=== PATIENT | female | born 1950 | race Caucasian/White ===

== ENCOUNTER 2017-12-07 10:14 | Emergency (ER) | payer OTHER ==
[~2017-12-07] VITALS: Ht 160 cm; Wt 58.0 kg
[2017-12-07 10:45] LABS: HEMATOCRIT 40.5 % (36.0-46.0); HEMOGLOBIN 13.9 G/DL (11.9-15.5); MCH 32.2 PG (29.0-34.0); MCHC 34.3 G/DL (30.0-36.0); MCV 93.8 FL (83-99); PLATELET COUNT 263 K/uL (156-360); RBC DIS.WIDTH-CV 12.3 % (11.8-14.6); RBC DIS.WIDTH-SD 42.4 % (39-53); RED BLOOD COUNT 4.32 M/uL (3.80-5.20); WHITE BLOOD COUNT 12.1 K/uL (4.1-10.2)
[2017-12-07 10:53] LABS: ALBUMIN 4.4 g/dL (3.2-4.8); CHLORIDE 102 mEq/L (99-109); SODIUM 139 mEq/L (136-147)
[2017-12-07 10:55] LABS: GLUCOSE 113 mg/dL (70-99)
[2017-12-07 10:56] LABS: TOTAL PROTEIN 8.1 g/dL (6.4-8.3)
[2017-12-07 10:57] LABS: TOTAL BILIRUBIN 0.3 mg/dL (0.0-1.0)
[2017-12-07 10:59] LABS: ALKALINE PHOSPHATASE 123 IU/L (3-129); CREATININE 0.9 mg/dL (0.6-1.3); GFR ESTIMATE (CALCULATED) > 59 mL/min/
[2017-12-07 11:00] LABS: UREA NITROGEN (BUN) 16 mg/dL (9-23)
[2017-12-07 11:01] LABS: AST (GOT) 27 IU/L (2-34)
[2017-12-07 11:02] LABS: ALT (GPT) 31 IU/L (3-49)
[2017-12-07 13:12] LABS: LIPASE 26 U/L (1.0-51.0)
[2017-12-07 13:14] LABS: APPEARANCE CLEAR ((CLEAR)); BILIRUBIN NEGATIVE; BLOOD SMALL; COLOR STRAW ((YELLOW)); GLUCOSE (STRIP) NEGATIVE; KETONES NEGATIVE; LEUKOCYTES NEGATIVE; NITRITE NEGATIVE; PROTEIN (STRIP) NEGATIVE; SPECIFIC GRAVITY 1.011 (1.000-1.030); UROBILINOGEN 0.2 MG/DL (0.2-1.0)
[2017-12-07 13:16] LABS: TROP-I INTERPRETATION NEGATIVE; TROPONIN-I < 0.01 ng/mL (0.0-0.30)
[2017-12-07 13:19] LABS: BACTERIA NONE SEEN /HPF; EPITHELIAL CELLS RARE /HPF; MUCUS NONE SEEN /LPF; UCUL ADDED? NO; WHITE BLOOD CELLS 0-5 /HPF (0-5)
[2017-12-07] MEDS ORDERED: BENTYL20 MG PO (14:16)
[2017-12-07] MEDS ORDERED: ZOFRAN ODT4 MG PO (14:16)
[2017-12-07 14:30] VITALS: BP 170/79
== END 2017-12-07 14:37 | disposition home or self-care (01) ==
LOC: EME 10:14
DX: R10.10 Upper abdominal pain, unspecified (principal); R31.9 Hematuria, unspecified; F32.9 Major depressive disorder, single episode, unspecified; Z87.891 Personal history of nicotine dependence
CPT/HCPCS: 74177; 80053; 81003; 83690; 84484; 85027; 93005; 99281; 99285